=== PATIENT | female | born 1965 | race Caucasian/White ===

== ENCOUNTER 2017-06-05 02:05 | Emergency (ER) | payer MEDICAID ==
[~2017-06-05] VITALS: Ht 167.6 cm; Wt 73.0 kg
[2017-06-05] MEDS ORDERED: KETOROLAC 30MG/ML VIAL IV STA (02:54)
[2017-06-05] MEDS ORDERED: SODIUM CHLORIDE 0.9% 1,000 ML IV ONE (02:54)
[2017-06-05] MEDS ORDERED: ONDANSETRON HCL 4MG/2ML VIAL IV STA (02:54)
[2017-06-05 03:31] LABS: HEMATOCRIT. 44.3 % (36.0-48.0); MEAN CORPUSCULAR HEMOGLOBIN 32.4 pg (28.0-32.0); MEAN CORPUSCULAR VOLUME 95.9 fL (81.0-99.0); MEAN PLATELET VOLUME 8.5 fl (7.4-10.4); PLATELET 280 x1000/uL (130-400); RED BLOOD CELL COUNT 4.62 mill/uL (4.2-5.4)
[2017-06-05 03:46] LABS: CARBON DIOXIDE 25 mEq/L (21-32); CHLORIDE 104 mEq/L (98-107)
[2017-06-05 06:26] LABS: CLARITY URINE CLEAR (CLEAR); COLOR URINE YELLOW (YELLOW); KETONES URINE NEGATIVE (NEGATIVE); LEUKOCYTE ESTERASE URINE NEGATIVE (NEGATIVE); NITRITE URINE POSITIVE (NEGATIVE); OCCULT BLOOD URINE 1+ (NEGATIVE); PH URINE 6.5 (4.5-8.0); PROTEIN URINE 1+ (NEGATIVE); SPECIFIC GRAVITY URINE 1.009 (1.005-1.030)
[2017-06-05 09:20] VITALS: BP 143/85
[2017-06-05 12:37] LABS: PLATELET ESTIMATE NORMAL
== END 2017-06-05 09:48 | disposition home or self-care (01) ==
LOC: ER 02:10
DX: G89.29 Other chronic pain (principal); M79.604 Pain in right leg; M79.605 Pain in left leg; I10 Essential (primary) hypertension; F17.200 Nicotine dependence, unspecified, uncomplicated
CPT/HCPCS: 36415; 71010; 80053; 81001; 83605; 85025; 87040; 93970; 96361; 96374; 96375; 99285; J1885; J2405; J7030; A4315

== ENCOUNTER 2017-06-07 03:08 | Emergency (ER) | payer MEDICAID ==
[~2017-06-07] VITALS: Ht 165.1 cm; Wt 70.0 kg
[2017-06-07] MEDS ORDERED: MORPHINE SULFATE 10 MG/ML CPJ IM ONE (03:45)
[2017-06-07 06:57] LABS: KETONES URINE NEGATIVE (NEGATIVE); LEUKOCYTE ESTERASE URINE 2+ (NEGATIVE); NITRITE URINE NEGATIVE (NEGATIVE); OCCULT BLOOD URINE 2+ (NEGATIVE); PH URINE 6.5 (4.5-8.0); PROTEIN URINE NEGATIVE (NEGATIVE)
[2017-06-07 07:38] LABS: CLARITY URINE CLOUDY (CLEAR); COLOR URINE YELLOW (YELLOW)
[2017-06-07] MEDS ORDERED: ONDANSETRON 4MG ODT PO ONE (09:15)
[2017-06-07 09:48] VITALS: BP 133/78
== END 2017-06-07 11:13 | disposition home or self-care (01) ==
LOC: ER 03:12
DX: N30.00 Acute cystitis without hematuria (principal); G89.29 Other chronic pain; M51.26 Other intervertebral disc displacement, lumbar region; K80.20 Calculus of gallbladder without cholecystitis without obstruction; I10 Essential (primary) hypertension; G82.20 Paraplegia, unspecified; Z98.1 Arthrodesis status
CPT/HCPCS: 51702; 72125; 72131; 81001; 96372; 99285; J2270; Q0162

== ENCOUNTER 2017-07-29 23:47 | Emergency (ER) | payer MEDICAID ==
[~2017-07-29] VITALS: Ht 167.6 cm; Wt 68.0 kg
[2017-07-30 01:21] LABS: BASOPHILS % 0.8 % (0.0-2.0); EOSINOPHILS % 11.2 % (0.0-5.0); HEMATOCRIT. 42.1 % (36.0-48.0); HEMOGLOBIN. 14.2 g/dL (12.0-16.0); LYMPHOCYTES % 28.6 % (20.0-50.0); MEAN CORPUSCULAR HEMOGLOBIN 32.7 pg (28.0-32.0); MEAN CORPUSCULAR VOLUME 96.8 fL (81.0-99.0); MEAN PLATELET VOLUME 8.5 fl (7.4-10.4); MONOCYTES % 10.3 % (2.0-8.0); NEUTROPHILS % 49.1 % (40.0-76.0); PLATELET 262 x1000/uL (130-400); RED BLOOD CELL COUNT 4.34 mill/uL (4.2-5.4)
[2017-07-30 01:28] LABS: CHLORIDE 106 mEq/L (98-107)
[2017-07-30 01:33] LABS: CARBON DIOXIDE 21 mEq/L (21-32)
[2017-07-30 02:36] LABS: CLARITY URINE CLOUDY (CLEAR); COLOR URINE YELLOW (YELLOW); GLUCOSE URINE NEGATIVE (NEGATIVE); KETONES URINE TRACE (NEGATIVE); LEUKOCYTE ESTERASE URINE 1+ (NEGATIVE); NITRITE URINE NEGATIVE (NEGATIVE); OCCULT BLOOD URINE 1+ (NEGATIVE); PH URINE 5.5 (4.5-8.0); PROTEIN URINE 2+ (NEGATIVE); SPECIFIC GRAVITY URINE 1.025 (1.005-1.030)
[2017-07-30 03:00] VITALS: BP 121/69
== END 2017-07-30 05:22 | disposition home or self-care (01) ==
LOC: ER 23:47 → SUPCPDRO 07-30 05:01 → ER 07-30 05:22
DX: L89.159 Pressure ulcer of sacral region, unspecified stage (principal); R33.9 Retention of urine, unspecified; I10 Essential (primary) hypertension; Z86.73 Personal history of transient ischemic attack (TIA), and cerebral infarction without residual deficits
CPT/HCPCS: 36415; 51702; 80048; 81001; 85025; 99284; A4315